=== PATIENT | male | born 1995 | race Caucasian/White ===

== ENCOUNTER 2021-01-24 16:11 | Emergency (ER) | payer OTHER ==
[~2021-01-24 16:11] MED LIST: BACTRIM DS TAB1 EACH PO; KEFLEX500 MG PO; NORCO 5-325 TA1 EACH PO
[2021-01-24] MEDS ORDERED: DIFLUCAN 100MG100 MG PO (17:11)
[2021-01-24] MEDS ORDERED: NYSTOP TOPICAL30 GM TOP (17:11)
[2021-01-24] MEDS ORDERED: CEPHALEXIN250 M1 PO (17:11)
== END 2021-01-24 17:18 | disposition home or self-care (01) ==
LOC: FER 16:11
DX: B37.2 Candidiasis of skin and nail (principal); F17.210 Nicotine dependence, cigarettes, uncomplicated
CPT/HCPCS: 99283